=== PATIENT | female | born 1935 | race Caucasian/White ===

== ENCOUNTER → 2020-01-27 | Outpatient (REF) | payer MEDICARE, BC ==
[~2020-01-27] MED LIST: AMLODIPINE PO; ASPIRIN PO; COUM1TAB18 PO; PRILOSEC PO; TYLENOL PO; ULTR50TA PO; [UNRECOGNIZED DRUG - OTHER] PO
== END ==
LOC: M LAB REF 10:31
PROVIDERS: ATTEND Dermatology
DX: C44.310 Basal cell carcinoma of skin of unspecified parts of face (principal); L90.5 Scar conditions and fibrosis of skin